=== PATIENT | male | born 1965 | race Hispanic/Latino ===

== ENCOUNTER 2020-02-08 19:03 | Inpatient (IN) | payer BC ==
[~2020-02-08] VITALS: Ht 177.8 cm; Wt 89.4 kg
[2020-02-08] MEDS: PHARMACY COMMUNICATION**REMDESIVIR ORDER MISC SCH ×3 (07:00→19:00)
[2020-02-08 19:49] LABS: BASOPHILS % (AUTO) 0.1 % (0.0-5.0); HEMATOCRIT 43.7 % (42-54); MEAN CORPUSCULAR HEMOGLOBIN 28.9 pg (27.0-33.0); MEAN CORPUSCULAR HGB CONC 33.9 g/dL (32.0-36.0); MEAN CORPUSCULAR VOLUME 85.4 fL (79-99); MONOCYTES % (AUTO) 3.1 % (3.0-13.0); NEUTROPHILS % (AUTO) 86.4 % (40.0-77.0); PLATELET COUNT (AUTO) 190 K/uL (130-400); RED BLOOD CELL COUNT(AUTO) 5.12 MIL/uL (4.50-6.20); WHITE BLOOD COUNT (AUTO) 11.2 K/uL (4.8-10.8)
[2020-02-08 20:04] LABS: CREATININE 1.1 mg/dL (0.5-1.5); POTASSIUM 3.9 mmol/L (3.5-5.1)
[2020-02-08 20:07] LABS: INR 0.93 (0.85-1.15); PROTHROMBIN TIME 10.1 SEC (9.6-11.6)
[2020-02-08 20:08] LABS: ALBUMIN 2.9 g/dL (3.5-5.0); BILIRUBIN,TOTAL 0.5 mg/dL (0.2-1.0); PARTIAL THROMBOPLASTIN TIME 33.1 SEC (26.3-35.5); TOTAL PROTEIN, SERUM 8.2 g/dL (6.0-8.3)
[2020-02-08] MEDS ORDERED: AZITHROMYCIN 250 MG TABLET PO ONE (20:11)
[2020-02-08] MEDS ORDERED: ACETAMINOPHEN EXTRA STRENGTH 500 MG TABLET ONE (20:11)
[2020-02-08] MEDS ORDERED: CEFTRIAXONE SODIUM 1 GM ONE (20:11)
[2020-02-08] MEDS ORDERED: DEXAMETHASONE 10MG/ML 1ML VIAL 6 MG in SODIUM CHLORIDE 0.9% 50 ML IV SCH (21:00)
[2020-02-08] MEDS ORDERED: LACTULOSE 20 GM/30 ML UDCUP PO PRN (21:00)
[2020-02-08] MEDS: CEFTRIAXONE SODIUM 1 GM IV SCH (21:00)
[2020-02-08] MEDS ORDERED: ERGOCALCIFEROL (VITAMIN D2) 50,000 UNIT CAPSULE PO ONE (21:00)
[2020-02-08] MEDS ORDERED: ZOLPIDEM TARTRATE 5 MG TAB PO PRN (21:00)
[2020-02-08] MEDS: HEPARIN SODIUM 5000UNIT/ML 1ML VIAL SQ SCH (21:00)
[2020-02-08] MEDS ORDERED: MORPHINE SULFATE 2 MG/ML 1ML SYG IV PRN (21:00)
[2020-02-08] MEDS: AZITHROMYCIN 500MG+NS 250ML 250 ML IV SCH (21:00)
[2020-02-08] MEDS ORDERED: ACETAMINOPHEN 325 MG TAB PO PRN ×2 (21:00)
[2020-02-08] MEDS ORDERED: MAG HYDROX/AL HYDROX/SIMETH 30 ML, LIDOCAINE HCL 2% VISCOUS 30 ML, DIPHENHYDRAMINE HCL ... PO PRN ×3 (21:00)
[2020-02-08] MEDS ORDERED: NITROGLYCERIN 0.4 MG SL TAB SL PRN (21:00)
[2020-02-08] MEDS ORDERED: MAG HYDROX/AL HYDROX/SIMETH ES 30 ML SUSP UDCUP PO PRN (21:00)
[2020-02-08] MEDS ORDERED: ONDANSETRON HCL 4 MG/2 ML VIAL IV PRN (21:00)
[2020-02-08] MEDS: FAMOTIDINE/PF 20 MG/2 ML VIAL IV SCH (21:00)
[2020-02-08] MEDS ORDERED: MORPHINE SULFATE 4 MG/1ML SYG IV PRN (21:00)
[2020-02-08] MEDS ORDERED: IOHEXOL 350 MG/ML 100ML INFUS..BTL IV ONE (21:23)
[2020-02-08] MEDS ORDERED: ERGOCALCIFEROL (VITAMIN D2) 50,000 UNIT CAPSULE ONE (21:24)
[2020-02-08] MEDS ORDERED: FAMOTIDINE/PF 20 MG/2 ML VIAL IV ONE (21:25)
[2020-02-08] MEDS ORDERED: ZOLPIDEM TARTRATE 5 MG TAB ONE (21:25)
[2020-02-08] MEDS ORDERED: DEXAMETHASONE SOD PHOSPHATE 4 MG/ML 1ML VIAL ONE (21:26)
[2020-02-08] MEDS ORDERED: GLUCAGON 1MG KIT 1 MG ML IM PRN (21:30)
[2020-02-08] MEDS ORDERED: DEXTROSE 50%-WATER 50 ML DISP.SYRIN IV PRN (21:30)
[2020-02-08 22:17] LABS: APPEARANCE,URINE Clear (CLEAR); BILIRUBIN,URINE Negative (NEGATIVE); COLOR,URINE Yellow (YELLOW); GLUCOSE, URINE (UA) TRACE mg/dL (NEGATIVE); KETONES,URINE 15 mg/dL (NEGATIVE); LEUKOCYTE ESTERASE ,URINE Negative (NEGATIVE); NITRATE,URINE Negative (NEGATIVE); OCCULT BLOOD,URINE Negative (NEGATIVE); PH,URINE 5.5 (5.0-8.0); PROTEIN,URINE POS 2+ mg/dL (NEGATIVE); UROBILINOGEN,URINE 0.2 mg/dL (0.2-1.0)
[2020-02-08 22:20] VITALS: BP 114/85
[2020-02-08 22:27] LABS: BACTERIA,URINE None Seen /HPF (None Seen); MUCUS,URINE Moderate LPF (None Seen); RBC,URINE None Seen /HPF (0-1); SQUAMOUS EPITHELIAL CELL,UR Few /HPF (0-2); WBC,URINE None Seen /HPF (0-1)
[2020-02-08] MEDS ORDERED: METF-444 PO (23:09)
[2020-02-09] MEDS: PHARMACY COMMUNICATION**REMDESIVIR ORDER MISC SCH ×5 (01:00→19:46)
[2020-02-09 03:55] VITALS: BP 141/83
[2020-02-09 06:10] LABS: BASOPHILS % (AUTO) 0.1 % (0.0-5.0); HEMATOCRIT 42.3 % (42-54); LYMPHOCYTES % (AUTO) 8.3 % (21.0-51.0); MEAN CORPUSCULAR HEMOGLOBIN 28.7 pg (27.0-33.0); MEAN CORPUSCULAR HGB CONC 33.8 g/dL (32.0-36.0); MEAN CORPUSCULAR VOLUME 84.9 fL (79-99); MONOCYTES % (AUTO) 2.5 % (3.0-13.0); NEUTROPHILS % (AUTO) 88.7 % (40.0-77.0); PLATELET COUNT (AUTO) 192 K/uL (130-400); RED BLOOD CELL COUNT(AUTO) 4.98 MIL/uL (4.50-6.20); RED CELL DISTRIBUTION WIDTH 12.9 % (11.0-15.5); WHITE BLOOD COUNT (AUTO) 11.5 K/uL (4.8-10.8)
[2020-02-09] MEDS: INSULIN LISPRO 100 UNIT/ML 3ML SQ SCH ×4 (06:36→21:07)
[2020-02-09] MEDS: DEXAMETHASONE 10MG/ML 1ML VIAL 6 MG in SODIUM CHLORIDE 0.9% 50 ML IV SCH (06:39)
[2020-02-09 06:48] LABS: ALBUMIN 2.6 g/dL (3.5-5.0); BILIRUBIN,TOTAL 0.5 mg/dL (0.2-1.0); CREATININE 1.1 mg/dL (0.5-1.5); POTASSIUM 4.1 mmol/L (3.5-5.1); TOTAL PROTEIN, SERUM 7.8 g/dL (6.0-8.3)
[2020-02-09 08:00] VITALS: BP 144/90
[2020-02-09 09:41] LABS: CRP QUANTITATIVE 294.2 mg/L (0.00-9.0)
[2020-02-09] MEDS: ASCORBIC ACID 500 MG TAB PO SCH (11:41)
[2020-02-09] MEDS: FAMOTIDINE/PF 20 MG/2 ML VIAL IV SCH ×2 (11:41→21:04)
[2020-02-09] MEDS: ZINC SULFATE 220 CAPSULE PO SCH (11:41)
[2020-02-09] MEDS: HEPARIN SODIUM 5000UNIT/ML 1ML VIAL SQ SCH ×3 (11:45→21:07)
[2020-02-09 12:00] VITALS: BP 136/86
[2020-02-09] MEDS ORDERED: GUAIFENESIN SUGAR-FREE 100 MG/5 ML UDCUP ONE (12:40)
[2020-02-09] MEDS ORDERED: GUAIFENESIN SUGAR-FREE 100 MG/5 ML UDCUP PO SCH (12:45)
[2020-02-09] MEDS ORDERED: PNEUMOCOCCAL VACCINE POLYVALENT 0.5 ML/VIAL [PPV] IM ONE (15:00)
[2020-02-09] MEDS ORDERED: PNEUMOCOCCAL VACCINE POLYVALENT 0.5 ML/VIAL [PPV] IM SCH (15:00)
--- NOTE | 2020-02-09 15:18 | NUR ---
ROBERT NOTE/IA UNABLE TO MEET WITH PATIENT IN ROOM, NEXT OF KIN CALLED,, VANITA DINO. PER DAUGHTER, PATIENT LIVES WITH SPOUSE, IS INDEPENDENT WITH ADLS, HAS GLUCOMETER IN USE, DRIVES, AND FEELS SAFE FOR PATIENT TO RETURN HOME ONCE DISCHARGED FROM HOSPITAL. Addendum: 02/09/20 at 1520 by MARIELENA NGUYỄN RN CM Amended: Links added.
[2020-02-09 16:00] VITALS: BP 136/85
[2020-02-09 20:05] VITALS: BP 133/77
[2020-02-09] MEDS: AZITHROMYCIN 500MG+NS 250ML 250 ML IV SCH (21:04)
[2020-02-09] MEDS: CEFTRIAXONE SODIUM 1 GM IV SCH (21:04)
[2020-02-10 00:20] VITALS: BP 130/87
[2020-02-10] MEDS: INSULIN LISPRO 100 UNIT/ML 3ML SQ SCH ×2 (05:00→17:55)
[2020-02-10] MEDS: PHARMACY COMMUNICATION**REMDESIVIR ORDER MISC SCH ×3 (05:00→19:00)
[2020-02-10 05:30] VITALS: BP 140/71
[2020-02-10 05:47] LABS: BASOPHILS % (AUTO) 0.2 % (0.0-5.0); EOSINOPHILS % (AUTO) 0.1 % (0.0-8.0); HEMATOCRIT 43.3 % (42-54); LYMPHOCYTES % (AUTO) 9.2 % (21.0-51.0); MEAN CORPUSCULAR HEMOGLOBIN 28.6 pg (27.0-33.0); MEAN CORPUSCULAR HGB CONC 33.5 g/dL (32.0-36.0); MEAN CORPUSCULAR VOLUME 85.4 fL (79-99); MONOCYTES % (AUTO) 1.8 % (3.0-13.0); NEUTROPHILS % (AUTO) 87.7 % (40.0-77.0); PLATELET COUNT (AUTO) 232 K/uL (130-400); RED BLOOD CELL COUNT(AUTO) 5.07 MIL/uL (4.50-6.20); WHITE BLOOD COUNT (AUTO) 13.2 K/uL (4.8-10.8)
[2020-02-10 06:12] LABS: ALBUMIN 2.5 g/dL (3.5-5.0); BILIRUBIN,TOTAL 0.5 mg/dL (0.2-1.0); CREATININE 0.8 mg/dL (0.5-1.5); POTASSIUM 3.9 mmol/L (3.5-5.1); TOTAL PROTEIN, SERUM 7.9 g/dL (6.0-8.3)
[2020-02-10 06:35] LABS: CRP QUANTITATIVE 342.7 mg/L (0.00-9.0)
[2020-02-10] MEDS: DEXAMETHASONE 10MG/ML 1ML VIAL 6 MG in SODIUM CHLORIDE 0.9% 50 ML IV SCH (06:35)
[2020-02-10] MEDS: ASCORBIC ACID 500 MG TAB PO SCH (08:24)
[2020-02-10] MEDS: ZINC SULFATE 220 CAPSULE PO SCH (08:24)
[2020-02-10] MEDS: FAMOTIDINE/PF 20 MG/2 ML VIAL IV SCH ×2 (08:24→20:37)
[2020-02-10] MEDS: HEPARIN SODIUM 5000UNIT/ML 1ML VIAL SQ SCH ×3 (08:26→20:51)
[2020-02-10 08:28] VITALS: BP 157/95
--- NOTE | 2020-02-10 10:36 | NUR ---
Update Spoke with family regarding pt's condition. Updated them on pt's status regarding oxygenation and activity tolerance. Verbalized understanding and will continue to offer encouragement and remind pt to practice deep breathing.
[2020-02-10 16:12] VITALS: BP 139/93
[2020-02-10 19:00] VITALS: BP 127/90
[2020-02-10 20:12] VITALS: BP 127/90
[2020-02-10] MEDS: AZITHROMYCIN 500MG+NS 250ML 250 ML IV SCH (20:35)
[2020-02-10] MEDS: CEFTRIAXONE SODIUM 1 GM IV SCH (20:36)
[2020-02-10 20:52] LABS: BASOPHILS % (AUTO) 0.1 % (0.0-5.0); HEMATOCRIT 42.4 % (42-54); MEAN CORPUSCULAR HEMOGLOBIN 28.8 pg (27.0-33.0); MEAN CORPUSCULAR HGB CONC 33.7 g/dL (32.0-36.0); MEAN CORPUSCULAR VOLUME 85.3 fL (79-99); MONOCYTES % (AUTO) 1.6 % (3.0-13.0); NEUTROPHILS % (AUTO) 90.9 % (40.0-77.0); PLATELET COUNT (AUTO) 267 K/uL (130-400); RED BLOOD CELL COUNT(AUTO) 4.97 MIL/uL (4.50-6.20); RED CELL DISTRIBUTION WIDTH 12.9 % (11.0-15.5); WHITE BLOOD COUNT (AUTO) 15.3 K/uL (4.8-10.8)
[2020-02-10] MEDS: INSULIN HUMULIN R 100 UNIT/ML 3ML SQ SCH (20:52)
[2020-02-10] MEDS ORDERED: INSULIN GLARGINE 100 UNITS/ML 10 ML VIAL SQ SCH (21:00)
[2020-02-11] MEDS: PHARMACY COMMUNICATION**REMDESIVIR ORDER MISC SCH ×4 (00:12→19:00)
[2020-02-11 00:13] VITALS: BP 124/92
[2020-02-11 04:00] VITALS: BP 141/80
[2020-02-11 06:12] LABS: BASOPHILS % (AUTO) 0.1 % (0.0-5.0); EOSINOPHILS % (AUTO) 0.1 % (0.0-8.0); HEMATOCRIT 44.9 % (42-54); LYMPHOCYTES % (AUTO) 6.4 % (21.0-51.0); MEAN CORPUSCULAR HEMOGLOBIN 27.8 pg (27.0-33.0); MEAN CORPUSCULAR HGB CONC 32.5 g/dL (32.0-36.0); MEAN CORPUSCULAR VOLUME 85.5 fL (79-99); MONOCYTES % (AUTO) 1.4 % (3.0-13.0); NEUTROPHILS % (AUTO) 90.6 % (40.0-77.0); PLATELET COUNT (AUTO) 282 K/uL (130-400); RED BLOOD CELL COUNT(AUTO) 5.25 MIL/uL (4.50-6.20); WHITE BLOOD COUNT (AUTO) 14.6 K/uL (4.8-10.8)
[2020-02-11] MEDS: DEXAMETHASONE 10MG/ML 1ML VIAL 6 MG in SODIUM CHLORIDE 0.9% 50 ML IV SCH (06:20)
[2020-02-11 06:43] LABS: ALBUMIN 2.4 g/dL (3.5-5.0); BILIRUBIN,TOTAL 0.4 mg/dL (0.2-1.0); POTASSIUM 4.6 mmol/L (3.5-5.1); TOTAL PROTEIN, SERUM 8.3 g/dL (6.0-8.3)
[2020-02-11 07:01] LABS: CRP QUANTITATIVE 330.6 mg/L (0.00-9.0)
[2020-02-11] MEDS: INSULIN HUMULIN R 100 UNIT/ML 3ML SQ SCH ×7 (07:30→21:42)
[2020-02-11] MEDS: HEPARIN SODIUM 5000UNIT/ML 1ML VIAL SQ SCH ×3 (08:07→21:38)
[2020-02-11] MEDS: FAMOTIDINE/PF 20 MG/2 ML VIAL IV SCH ×2 (08:09→21:37)
[2020-02-11] MEDS: ASCORBIC ACID 500 MG TAB PO SCH (08:09)
[2020-02-11] MEDS: ZINC SULFATE 220 CAPSULE PO SCH (08:09)
--- NOTE | 2020-02-11 09:15 | NUR ---
DR. AMADOR AWARE OF CONSULT. SPOKE TO MD VIA TELEPHONE.
[2020-02-11] MEDS ORDERED: PHARMACY COMMUNICATION MISC SCH ×2 (10:15→10:45)
[2020-02-11] MEDS ORDERED: METHYLPREDNISOLONE SOD SUCC 125MG/2ML VIAL ONE (11:05)
[2020-02-11 12:19] VITALS: BP 139/93
[2020-02-11] MEDS: METHYLPREDNISOLONE SOD SUCC 125MG/2ML VIAL IVP SCH ×2 (12:24→18:55)
[2020-02-11 12:41] LABS: ABG BASE EXCESS -0.8 mmol/L (-2.0-3.0); ABG OXYGEN SATURATION 94.5 % (95.0-99.0); ABG PCO2 36 mmHg (35-48)
[2020-02-11] MEDS ORDERED: COMPOUND IV REFRIGERATED 1 EACH IVSOLN MISC PRN (14:00)
[2020-02-11] MEDS ORDERED: REMDESIVIR (EUA) 520 200 MG in SODIUM CHLORIDE 0.9% 250 ML IV ONE (14:00)
[2020-02-11 16:34] VITALS: BP 146/72
[2020-02-11 20:47] VITALS: BP 133/88
[2020-02-11] MEDS ORDERED: INSULIN GLARGINE 100 UNITS/ML 10 ML VIAL SQ SCH (21:00)
[2020-02-11] MEDS: CEFTRIAXONE SODIUM 1 GM IV SCH (21:37)
[2020-02-12] VITALS (7 sets, daily range): BP systolic 112–151; BP diastolic 65–88
[2020-02-12] MEDS: METHYLPREDNISOLONE SOD SUCC 125MG/2ML VIAL IVP SCH ×4 (02:52→22:50)
[2020-02-12] MEDS: PHARMACY COMMUNICATION MISC SCH (05:08)
[2020-02-12 05:09] LABS: BASOPHILS % (AUTO) 0.2 % (0.0-5.0); HEMATOCRIT 44.5 % (42-54); LYMPHOCYTES % (AUTO) 5.4 % (21.0-51.0); MEAN CORPUSCULAR HEMOGLOBIN 28.6 pg (27.0-33.0); MEAN CORPUSCULAR HGB CONC 33.7 g/dL (32.0-36.0); MEAN CORPUSCULAR VOLUME 84.8 fL (79-99); MONOCYTES % (AUTO) 1.6 % (3.0-13.0); NEUTROPHILS % (AUTO) 91.2 % (40.0-77.0); PLATELET COUNT (AUTO) 305 K/uL (130-400); RED BLOOD CELL COUNT(AUTO) 5.25 MIL/uL (4.50-6.20)
[2020-02-12 05:48] LABS: CRP QUANTITATIVE 480.2 mg/L (0.00-9.0); POTASSIUM 4.1 mmol/L (3.5-5.1)
[2020-02-12] MEDS: INSULIN HUMULIN R 100 UNIT/ML 3ML SQ SCH ×6 (06:49→22:55)
[2020-02-12] MEDS ORDERED: INSULIN HUMULIN R 100 UNIT/ML 3ML SQ SCH (07:30)
[2020-02-12] MEDS: ENOXAPARIN SODIUM 60 MG/0.6 ML SQ SCH ×3 (08:58→22:49)
[2020-02-12] MEDS: FAMOTIDINE/PF 20 MG/2 ML VIAL IV SCH ×2 (08:58→22:50)
[2020-02-12] MEDS: ASCORBIC ACID 500 MG TAB PO SCH (08:59)
[2020-02-12] MEDS: ZINC SULFATE 220 CAPSULE PO SCH (08:59)
[2020-02-12 09:01] LABS: ALBUMIN 2.1 g/dL (3.5-5.0); BILIRUBIN,DIRECT 0.1 mg/dL (0.0-0.3); BILIRUBIN,TOTAL 0.4 mg/dL (0.2-1.0); TOTAL PROTEIN, SERUM 7.7 g/dL (6.0-8.3)
[2020-02-12] MEDS: REMDESIVIR (EUA) 520 100 MG in SODIUM CHLORIDE 0.9% 250 ML IV SCH (14:03)
--- NOTE | 2020-02-12 18:02 | NUR ---
Pt remain on high flow o2, cont pulse ox maintained per order. Frequent rounding performed. IV remdesevir givenper order. Proning as tolerated. spoke to patient family multiple occasions during the shift, plan of care discuss with pt and family. safety maintained. no acute events for this shift
[2020-02-12] MEDS ORDERED: INSULIN GLARGINE 100 UNITS/ML 10 ML VIAL SQ SCH (21:00)
[2020-02-12] MEDS: CEFTRIAXONE SODIUM 1 GM IV SCH (22:49)
[2020-02-13 03:50] VITALS: BP 132/77
[2020-02-13] MEDS: PHARMACY COMMUNICATION MISC SCH (05:19)
[2020-02-13 05:44] LABS: BASOPHILS % (AUTO) 0.2 % (0.0-5.0); HEMATOCRIT 44.9 % (42-54); LYMPHOCYTES % (AUTO) 5.7 % (21.0-51.0); MEAN CORPUSCULAR HEMOGLOBIN 28.3 pg (27.0-33.0); MEAN CORPUSCULAR HGB CONC 33.2 g/dL (32.0-36.0); MEAN CORPUSCULAR VOLUME 85.4 fL (79-99); MONOCYTES % (AUTO) 1.4 % (3.0-13.0); NEUTROPHILS % (AUTO) 90.9 % (40.0-77.0); PLATELET COUNT (AUTO) 350 K/uL (130-400); RED BLOOD CELL COUNT(AUTO) 5.26 MIL/uL (4.50-6.20); RED CELL DISTRIBUTION WIDTH 13.2 % (11.0-15.5); WHITE BLOOD COUNT (AUTO) 18.9 K/uL (4.8-10.8)
[2020-02-13 06:10] LABS: ALBUMIN 2.1 g/dL (3.5-5.0); BILIRUBIN,TOTAL 0.3 mg/dL (0.2-1.0); CREATININE 0.9 mg/dL (0.5-1.5); CRP QUANTITATIVE 119.9 mg/L (0.00-9.0); POTASSIUM 4.3 mmol/L (3.5-5.1); TOTAL PROTEIN, SERUM 7.4 g/dL (6.0-8.3)
[2020-02-13] MEDS: INSULIN HUMULIN R 100 UNIT/ML 3ML SQ SCH ×7 (06:22→20:54)
[2020-02-13] MEDS: INSULIN GLARGINE 100 UNITS/ML 10 ML VIAL SQ SCH (07:59)
[2020-02-13 08:00] VITALS: BP 116/78
[2020-02-13] MEDS: ASCORBIC ACID 500 MG TAB PO SCH (09:03)
[2020-02-13] MEDS: FAMOTIDINE/PF 20 MG/2 ML VIAL IV SCH ×2 (09:03→20:52)
[2020-02-13] MEDS: ENOXAPARIN SODIUM 60 MG/0.6 ML SQ SCH ×2 (09:03→20:54)
[2020-02-13] MEDS: ZINC SULFATE 220 CAPSULE PO SCH (09:03)
[2020-02-13] MEDS: METHYLPREDNISOLONE SOD SUCC 125MG/2ML VIAL IVP SCH ×2 (09:20→17:08)
[2020-02-13 11:00] VITALS: BP 127/70
[2020-02-13] MEDS: REMDESIVIR (EUA) 520 100 MG in SODIUM CHLORIDE 0.9% 250 ML IV SCH (13:41)
[2020-02-13 16:00] VITALS: BP 125/63
--- NOTE | 2020-02-13 18:41 | NUR ---
UPDATE 02/12 PT AOX4. Remdesivir dose administered. vss. maintained on HRNB o2. cont pulse ox. saturating 90's.bs mnitor closely. all meds given. no acute events to report for this shif
[2020-02-13 19:30] VITALS: BP 126/55
[2020-02-13] MEDS: CEFTRIAXONE SODIUM 1 GM IV SCH (20:52)
[2020-02-13] MEDS ORDERED: INSULIN GLARGINE 100 UNITS/ML 10 ML VIAL SQ SCH (21:00)
[2020-02-13 23:00] VITALS: BP 154/48
[2020-02-14] MEDS: METHYLPREDNISOLONE SOD SUCC 125MG/2ML VIAL IVP SCH ×3 (01:55→18:12)
[2020-02-14 02:49] VITALS: BP 123/90
[2020-02-14] MEDS: PHARMACY COMMUNICATION MISC SCH (06:00)
[2020-02-14 06:02] LABS: BASOPHILS % (AUTO) 0.2 % (0.0-5.0); HEMATOCRIT 45.6 % (42-54); LYMPHOCYTES % (AUTO) 5.6 % (21.0-51.0); MEAN CORPUSCULAR HEMOGLOBIN 28.7 pg (27.0-33.0); MEAN CORPUSCULAR HGB CONC 33.1 g/dL (32.0-36.0); MEAN CORPUSCULAR VOLUME 86.5 fL (79-99); MONOCYTES % (AUTO) 1.5 % (3.0-13.0); NEUTROPHILS % (AUTO) 90.3 % (40.0-77.0); PLATELET COUNT (AUTO) 354 K/uL (130-400); RED BLOOD CELL COUNT(AUTO) 5.27 MIL/uL (4.50-6.20); RED CELL DISTRIBUTION WIDTH 13.5 % (11.0-15.5)
[2020-02-14] MEDS: INSULIN HUMULIN R 100 UNIT/ML 3ML SQ SCH ×7 (06:02→21:00)
[2020-02-14 06:28] LABS: BILIRUBIN,TOTAL 0.3 mg/dL (0.2-1.0); CREATININE 0.9 mg/dL (0.5-1.5); POTASSIUM 4.1 mmol/L (3.5-5.1); TOTAL PROTEIN, SERUM 7.2 g/dL (6.0-8.3)
[2020-02-14 07:23] VITALS: BP 109/69
[2020-02-14] MEDS: ASCORBIC ACID 500 MG TAB PO SCH (08:39)
[2020-02-14] MEDS: FAMOTIDINE/PF 20 MG/2 ML VIAL IV SCH ×2 (08:39→21:16)
[2020-02-14] MEDS: ZINC SULFATE 220 CAPSULE PO SCH (08:39)
[2020-02-14] MEDS: ENOXAPARIN SODIUM 60 MG/0.6 ML SQ SCH ×2 (08:40→21:16)
[2020-02-14] MEDS: INSULIN GLARGINE 100 UNITS/ML 10 ML VIAL SQ SCH (08:43)
[2020-02-14 11:21] VITALS: BP 123/69
[2020-02-14] MEDS: REMDESIVIR (EUA) 520 100 MG in SODIUM CHLORIDE 0.9% 250 ML IV SCH (13:29)
[2020-02-14 15:35] VITALS: BP 145/84
[2020-02-14 19:00] VITALS: BP_SYST 117; BP_SYST 131; BP_DIAS 66; BP_DIAS 73
[2020-02-14] MEDS: CEFTRIAXONE SODIUM 1 GM IV SCH (21:16)
[2020-02-14] MEDS ORDERED: SODIUM CHLORIDE 0.9% 100 ML IV ONE (21:41)
[2020-02-14 23:00] VITALS: BP 128/82
[2020-02-15] MEDS: METHYLPREDNISOLONE SOD SUCC 125MG/2ML VIAL IVP SCH ×3 (01:27→18:39)
[2020-02-15 03:00] VITALS: BP 115/75
[2020-02-15] MEDS: PHARMACY COMMUNICATION MISC SCH (05:52)
[2020-02-15] MEDS: INSULIN HUMULIN R 100 UNIT/ML 3ML SQ SCH ×7 (05:53→20:23)
[2020-02-15 06:27] LABS: BASOPHILS % (AUTO) 0.1 % (0.0-5.0); HEMATOCRIT 45.7 % (42-54); LYMPHOCYTES % (AUTO) 5.3 % (21.0-51.0); MEAN CORPUSCULAR HEMOGLOBIN 28.4 pg (27.0-33.0); MEAN CORPUSCULAR HGB CONC 32.6 g/dL (32.0-36.0); MONOCYTES % (AUTO) 1.2 % (3.0-13.0); PLATELET COUNT (AUTO) 329 K/uL (130-400); RED BLOOD CELL COUNT(AUTO) 5.25 MIL/uL (4.50-6.20); RED CELL DISTRIBUTION WIDTH 13.6 % (11.0-15.5); WHITE BLOOD COUNT (AUTO) 17.8 K/uL (4.8-10.8)
[2020-02-15 07:02] LABS: ALBUMIN 2.1 g/dL (3.5-5.0); BILIRUBIN,TOTAL 0.4 mg/dL (0.2-1.0); CREATININE 0.7 mg/dL (0.5-1.5); CRP QUANTITATIVE 47.4 mg/L (0.00-9.0); POTASSIUM 4.6 mmol/L (3.5-5.1); TOTAL PROTEIN, SERUM 6.9 g/dL (6.0-8.3)
[2020-02-15 08:00] VITALS: BP 125/81
[2020-02-15] MEDS: INSULIN GLARGINE 100 UNITS/ML 10 ML VIAL SQ SCH (08:23)
[2020-02-15] MEDS: FAMOTIDINE/PF 20 MG/2 ML VIAL IV SCH ×2 (08:24→20:23)
[2020-02-15] MEDS: ZINC SULFATE 220 CAPSULE PO SCH (08:24)
[2020-02-15] MEDS: ASCORBIC ACID 500 MG TAB PO SCH (08:24)
[2020-02-15] MEDS: ENOXAPARIN SODIUM 60 MG/0.6 ML SQ SCH ×2 (08:25→20:24)
[2020-02-15 11:00] VITALS: BP 123/76
[2020-02-15] MEDS: REMDESIVIR (EUA) 520 100 MG in SODIUM CHLORIDE 0.9% 250 ML IV SCH (13:06)
[2020-02-15 16:00] VITALS: BP 132/82
[2020-02-15 19:40] VITALS: BP 129/77
[2020-02-15 23:10] VITALS: BP 121/75
[2020-02-16] MEDS: METHYLPREDNISOLONE SOD SUCC 125MG/2ML VIAL IVP SCH ×3 (01:53→17:43)
[2020-02-16] MEDS: BENZOCAINE/MENTH/CETYLPYRD CL 1 EACH LOZENGE MM PRN (03:11)
[2020-02-16] MEDS: PHARMACY COMMUNICATION MISC SCH (03:18)
[2020-02-16 05:57] LABS: BASOPHILS % (AUTO) 0.2 % (0.0-5.0); HEMATOCRIT 46.3 % (42-54); LYMPHOCYTES % (AUTO) 5.2 % (21.0-51.0); MEAN CORPUSCULAR HEMOGLOBIN 28.7 pg (27.0-33.0); MEAN CORPUSCULAR HGB CONC 32.8 g/dL (32.0-36.0); MEAN CORPUSCULAR VOLUME 87.4 fL (79-99); MONOCYTES % (AUTO) 1.4 % (3.0-13.0); PLATELET COUNT (AUTO) 344 K/uL (130-400); RED CELL DISTRIBUTION WIDTH 13.4 % (11.0-15.5); WHITE BLOOD COUNT (AUTO) 18.2 K/uL (4.8-10.8)
[2020-02-16] MEDS: INSULIN HUMULIN R 100 UNIT/ML 3ML SQ SCH ×7 (06:04→20:34)
[2020-02-16 06:07] VITALS: BP 117/75
[2020-02-16 06:34] LABS: ALANINE AMINOTRANSFERASE 86 U/L (12-78); ALBUMIN 2.2 g/dL (3.5-5.0); ASPARTATE AMINOTRANSFERASE 52 U/L (10-37); BILIRUBIN,TOTAL 0.5 mg/dL (0.2-1.0); CARBON DIOXIDE 26 mmol/L (21-32); CHLORIDE 103 mmol/L (101-111); CREATININE 0.8 mg/dL (0.5-1.5); GLOMERULAR FILTR. RATE CALC 106 mL/min (>60); GLUCOSE,RANDOM 112 mg/dL (70-105); LACTATE DEHYDROGENASE 496 U/L (81-234); POTASSIUM 4.6 mmol/L (3.5-5.1); SODIUM SERUM 138 mmol/L (136-145); TOTAL PROTEIN, SERUM 6.8 g/dL (6.0-8.3); UREA NITROGEN, BLOOD 18 mg/dL (7-18)
[2020-02-16] MEDS: INSULIN GLARGINE 100 UNITS/ML 10 ML VIAL SQ SCH (08:13)
[2020-02-16] MEDS: FAMOTIDINE/PF 20 MG/2 ML VIAL IV SCH ×2 (08:14→20:31)
[2020-02-16] MEDS: ASCORBIC ACID 500 MG TAB PO SCH (08:14)
[2020-02-16] MEDS: ENOXAPARIN SODIUM 60 MG/0.6 ML SQ SCH ×2 (08:14→20:31)
[2020-02-16] MEDS: ZINC SULFATE 220 CAPSULE PO SCH (08:14)
[2020-02-16 09:06] VITALS: BP 109/58
[2020-02-16 14:48] VITALS: BP 106/63
[2020-02-16] MEDS: GUAIFENESIN-DM 200/20 MG 10 ML PO PRN ×2 (17:43→20:31)
[2020-02-16 18:51] VITALS: BP 123/69
[2020-02-16 19:40] VITALS: BP 116/67
[2020-02-16 23:10] VITALS: BP 102/60
[2020-02-17] MEDS: METHYLPREDNISOLONE SOD SUCC 125MG/2ML VIAL IVP SCH ×3 (02:23→16:49)
[2020-02-17 04:10] VITALS: BP 116/69
[2020-02-17 06:11] LABS: BASOPHILS % (AUTO) 0.2 % (0.0-5.0); HEMATOCRIT 45.8 % (42-54); LYMPHOCYTES % (AUTO) 6.4 % (21.0-51.0); MEAN CORPUSCULAR HEMOGLOBIN 28.5 pg (27.0-33.0); MEAN CORPUSCULAR VOLUME 86.4 fL (79-99); MONOCYTES % (AUTO) 2.1 % (3.0-13.0); NEUTROPHILS % (AUTO) 89.2 % (40.0-77.0); PLATELET COUNT (AUTO) 345 K/uL (130-400); RED CELL DISTRIBUTION WIDTH 13.4 % (11.0-15.5); WHITE BLOOD COUNT (AUTO) 17.9 K/uL (4.8-10.8)
[2020-02-17] MEDS: INSULIN HUMULIN R 100 UNIT/ML 3ML SQ SCH ×7 (06:27→20:10)
[2020-02-17 06:28] LABS: ALBUMIN 2.1 g/dL (3.5-5.0); BILIRUBIN,TOTAL 0.5 mg/dL (0.2-1.0); CREATININE 0.8 mg/dL (0.5-1.5); CRP QUANTITATIVE 21.7 mg/L (0.00-9.0); POTASSIUM 4.7 mmol/L (3.5-5.1); TOTAL PROTEIN, SERUM 6.8 g/dL (6.0-8.3)
[2020-02-17 08:00] VITALS: BP 106/63
[2020-02-17] MEDS: INSULIN GLARGINE 100 UNITS/ML 10 ML VIAL SQ SCH (08:00)
[2020-02-17] MEDS: ASCORBIC ACID 500 MG TAB PO SCH (08:50)
[2020-02-17] MEDS: ENOXAPARIN SODIUM 60 MG/0.6 ML SQ SCH ×2 (08:51→20:09)
[2020-02-17] MEDS: ZINC SULFATE 220 CAPSULE PO SCH (08:51)
[2020-02-17] MEDS: FAMOTIDINE/PF 20 MG/2 ML VIAL IV SCH ×2 (08:51→20:08)
[2020-02-17 12:35] VITALS: BP 119/80
[2020-02-17 17:39] VITALS: BP 118/70
[2020-02-17 19:40] VITALS: BP 130/81
--- NOTE | 2020-02-17 19:52 | NUR ---
MD CALL RCVD CALL FROM DR. SANCHEZ REGARDING PT NOT RECEIVING SCHEDULED LANTUS 30 UNITS AT 0800. TORB TO GIVE PT LANTUS 30 UNITS SQ NOW. PT BG AT THIS TIME IS 240.
[2020-02-17] MEDS ORDERED: INSULIN GLARGINE 100 UNITS/ML 10 ML VIAL SQ ONE (20:15)
[2020-02-17 23:05] VITALS: BP 111/63
[2020-02-18] MEDS: METHYLPREDNISOLONE SOD SUCC 125MG/2ML VIAL IVP SCH ×4 (02:25→19:51)
[2020-02-18 04:25] VITALS: BP 120/78
[2020-02-18 05:29] LABS: BASOPHILS % (AUTO) 0.1 % (0.0-5.0); HEMATOCRIT 45.5 % (42-54); LYMPHOCYTES % (AUTO) 3.2 % (21.0-51.0); MEAN CORPUSCULAR HEMOGLOBIN 28.2 pg (27.0-33.0); MEAN CORPUSCULAR HGB CONC 32.7 g/dL (32.0-36.0); MEAN CORPUSCULAR VOLUME 86.2 fL (79-99); MONOCYTES % (AUTO) 2.1 % (3.0-13.0); NEUTROPHILS % (AUTO) 93.2 % (40.0-77.0); PLATELET COUNT (AUTO) 299 K/uL (130-400); RED BLOOD CELL COUNT(AUTO) 5.28 MIL/uL (4.50-6.20); RED CELL DISTRIBUTION WIDTH 13.3 % (11.0-15.5); WHITE BLOOD COUNT (AUTO) 17.3 K/uL (4.8-10.8)
[2020-02-18 05:49] LABS: BILIRUBIN,TOTAL 0.4 mg/dL (0.2-1.0); CREATININE 0.8 mg/dL (0.5-1.5); TOTAL PROTEIN, SERUM 6.4 g/dL (6.0-8.3)
[2020-02-18] MEDS: INSULIN HUMULIN R 100 UNIT/ML 3ML SQ SCH ×7 (06:38→20:21)
[2020-02-18 08:18] VITALS: BP 114/73
[2020-02-18] MEDS: FAMOTIDINE/PF 20 MG/2 ML VIAL IV SCH ×2 (08:32→19:51)
[2020-02-18] MEDS: ASCORBIC ACID 500 MG TAB PO SCH (08:32)
[2020-02-18] MEDS: ZINC SULFATE 220 CAPSULE PO SCH (08:32)
[2020-02-18] MEDS: ENOXAPARIN SODIUM 60 MG/0.6 ML SQ SCH ×2 (08:33→19:51)
[2020-02-18] MEDS: INSULIN GLARGINE 100 UNITS/ML 10 ML VIAL SQ SCH (08:34)
[2020-02-18 11:44] VITALS: BP 109/66
--- NOTE | 2020-02-18 13:02 | NUR ---
RDSCREEN - LOS X 10 Pt admitted with positive COVID-19 PNA. Pt tolerating 75gm CCD with no report of GI distress, Good PO intake at 100%. WBC 17.3, BG 198, Alb 2.0. Zinc, vitamin C, insulin meds in place. Obesity Class I. Recommned 60mL ProMod BID Recommend continue 75gm CCD RD to continue to monitor. Please notify as additional nutrition concerns arise. Thank you. Addendum: 02/18/20 at [address] Amended: Links added.
[2020-02-18 15:19] VITALS: BP 115/79
[2020-02-18 19:24] VITALS: BP 138/78
[2020-02-18 23:00] VITALS: BP 121/66
[2020-02-19 03:29] VITALS: BP 103/58
[2020-02-19 06:12] LABS: BASOPHILS % (AUTO) 0.1 % (0.0-5.0); LYMPHOCYTES % (AUTO) 5.1 % (21.0-51.0); MEAN CORPUSCULAR HEMOGLOBIN 28.4 pg (27.0-33.0); MEAN CORPUSCULAR HGB CONC 32.5 g/dL (32.0-36.0); MEAN CORPUSCULAR VOLUME 87.3 fL (79-99); MONOCYTES % (AUTO) 1.6 % (3.0-13.0); NEUTROPHILS % (AUTO) 91.5 % (40.0-77.0); PLATELET COUNT (AUTO) 309 K/uL (130-400); RED CELL DISTRIBUTION WIDTH 13.2 % (11.0-15.5)
[2020-02-19 06:31] LABS: ALBUMIN 2.1 g/dL (3.5-5.0); BILIRUBIN,TOTAL 0.4 mg/dL (0.2-1.0); CREATININE 0.8 mg/dL (0.5-1.5); POTASSIUM 4.7 mmol/L (3.5-5.1); TOTAL PROTEIN, SERUM 6.6 g/dL (6.0-8.3)
[2020-02-19] MEDS: INSULIN HUMULIN R 100 UNIT/ML 3ML SQ SCH ×7 (06:37→22:18)
[2020-02-19 08:00] VITALS: BP 133/74
[2020-02-19] MEDS: METHYLPREDNISOLONE SOD SUCC 125MG/2ML VIAL IVP SCH ×2 (10:45→22:08)
[2020-02-19] MEDS: ZINC SULFATE 220 CAPSULE PO SCH (10:45)
[2020-02-19] MEDS: FAMOTIDINE/PF 20 MG/2 ML VIAL IV SCH ×2 (10:45→22:08)
[2020-02-19] MEDS: ASCORBIC ACID 500 MG TAB PO SCH (10:45)
[2020-02-19] MEDS: ENOXAPARIN SODIUM 60 MG/0.6 ML SQ SCH ×2 (10:46→22:08)
[2020-02-19 11:00] VITALS: BP 115/57
[2020-02-19] MEDS: INSULIN GLARGINE 100 UNITS/ML 10 ML VIAL SQ SCH (11:52)
[2020-02-19 15:30] VITALS: BP 123/75
[2020-02-19 19:40] VITALS: BP 120/55
[2020-02-19 23:20] VITALS: BP 125/79
[2020-02-20 04:30] VITALS: BP 117/65
[2020-02-20] MEDS: INSULIN HUMULIN R 100 UNIT/ML 3ML SQ SCH ×7 (06:20→20:57)
[2020-02-20 07:00] VITALS: BP 108/69
[2020-02-20] MEDS: ZINC SULFATE 220 CAPSULE PO SCH (08:45)
[2020-02-20] MEDS: METHYLPREDNISOLONE SOD SUCC 125MG/2ML VIAL IVP SCH ×2 (08:45→20:55)
[2020-02-20] MEDS: FAMOTIDINE/PF 20 MG/2 ML VIAL IV SCH ×2 (08:45→20:55)
[2020-02-20] MEDS: ENOXAPARIN SODIUM 60 MG/0.6 ML SQ SCH ×2 (08:46→20:56)
[2020-02-20] MEDS: ASCORBIC ACID 500 MG TAB PO SCH (08:46)
[2020-02-20] MEDS: INSULIN GLARGINE 100 UNITS/ML 10 ML VIAL SQ SCH (08:58)
[2020-02-20 11:00] VITALS: BP 105/72
--- NOTE | 2020-02-20 12:53 | NUR ---
ROUNDING PT SITTING UP AT THE SIDE OF BED EATING LUNCH. PT VS STABLE NRB 50L, 80%, SPO2 @93%
[2020-02-20 15:00] VITALS: BP 124/82
[2020-02-20 19:45] VITALS: BP 120/69
[2020-02-20 23:10] VITALS: BP 114/60
[2020-02-21 04:00] VITALS: BP 112/65
[2020-02-21 05:30] LABS: BASOPHILS % (AUTO) 0.1 % (0.0-5.0); EOSINOPHILS % (AUTO) 0.1 % (0.0-8.0); HEMATOCRIT 44.7 % (42-54); LYMPHOCYTES % (AUTO) 4.1 % (21.0-51.0); MEAN CORPUSCULAR HEMOGLOBIN 28.7 pg (27.0-33.0); MEAN CORPUSCULAR HGB CONC 32.9 g/dL (32.0-36.0); MEAN CORPUSCULAR VOLUME 87.3 fL (79-99); MONOCYTES % (AUTO) 2.7 % (3.0-13.0); PLATELET COUNT (AUTO) 264 K/uL (130-400); RED BLOOD CELL COUNT(AUTO) 5.12 MIL/uL (4.50-6.20); RED CELL DISTRIBUTION WIDTH 13.3 % (11.0-15.5); WHITE BLOOD COUNT (AUTO) 18.7 K/uL (4.8-10.8)
[2020-02-21 05:52] LABS: B-TYPE NATRIURETIC PEPTIDE < 5 pg/mL (0-100)
[2020-02-21 05:59] LABS: ALBUMIN 2.1 g/dL (3.5-5.0); BILIRUBIN,TOTAL 0.3 mg/dL (0.2-1.0); CREATININE 0.9 mg/dL (0.5-1.5); CRP QUANTITATIVE 4.5 mg/L (0.00-9.0); MAGNESIUM 2.4 mg/dL (1.80-2.40); PHOSPHORUS 3.9 mg/dL (2.5-4.9); TOTAL PROTEIN, SERUM 5.9 g/dL (6.0-8.3)
[2020-02-21] MEDS: INSULIN HUMULIN R 100 UNIT/ML 3ML SQ SCH ×6 (06:35→21:00)
[2020-02-21 07:00] VITALS: BP 112/69
[2020-02-21] MEDS: METHYLPREDNISOLONE SOD SUCC 125MG/2ML VIAL IVP SCH (07:52)
[2020-02-21] MEDS ORDERED: METHYLPREDNISOLONE SOD SUCC 125MG/2ML VIAL IVP SCH (08:00)
[2020-02-21] MEDS: ASCORBIC ACID 500 MG TAB PO SCH (08:39)
[2020-02-21] MEDS: FAMOTIDINE/PF 20 MG/2 ML VIAL IV SCH ×2 (08:39→21:03)
[2020-02-21] MEDS: ZINC SULFATE 220 CAPSULE PO SCH (08:39)
[2020-02-21] MEDS: ENOXAPARIN SODIUM 60 MG/0.6 ML SQ SCH ×2 (08:39→21:03)
[2020-02-21] MEDS: INSULIN GLARGINE 100 UNITS/ML 10 ML VIAL SQ SCH (08:41)
[2020-02-21 11:00] VITALS: BP 126/76
[2020-02-21 15:00] VITALS: BP 132/79
--- NOTE | 2020-02-21 16:38 | NUR ---
SITTING UP ON SIDE OF BED WATCHING TELEVISION, W/O C/O. HIGH FLOW N/C IN PLACE. CALL LIGHT WITHIN REACH.
[2020-02-21] MEDS: METHYLPREDNISOLONE SOD SUCC 40MG/ML 1ML IVP SCH ×2 (17:33→21:03)
[2020-02-21 20:00] VITALS: BP 139/88
[2020-02-21 23:53] VITALS: BP 123/71
[2020-02-22 03:37] VITALS: BP 122/73
[2020-02-22 06:03] LABS: BASOPHILS % (AUTO) 0.2 % (0.0-5.0); EOSINOPHILS % (AUTO) 0.1 % (0.0-8.0); HEMATOCRIT 47.4 % (42-54); LYMPHOCYTES % (AUTO) 7.4 % (21.0-51.0); MEAN CORPUSCULAR HEMOGLOBIN 28.2 pg (27.0-33.0); MEAN CORPUSCULAR HGB CONC 32.5 g/dL (32.0-36.0); MEAN CORPUSCULAR VOLUME 86.8 fL (79-99); MONOCYTES % (AUTO) 3.1 % (3.0-13.0); PLATELET COUNT (AUTO) 246 K/uL (130-400); RED BLOOD CELL COUNT(AUTO) 5.46 MIL/uL (4.50-6.20); RED CELL DISTRIBUTION WIDTH 13.4 % (11.0-15.5); WHITE BLOOD COUNT (AUTO) 18.3 K/uL (4.8-10.8)
[2020-02-22 06:23] LABS: ALBUMIN 2.2 g/dL (3.5-5.0); BILIRUBIN,TOTAL 0.4 mg/dL (0.2-1.0); CREATININE 0.7 mg/dL (0.5-1.5); POTASSIUM 4.6 mmol/L (3.5-5.1); TOTAL PROTEIN, SERUM 6.2 g/dL (6.0-8.3)
[2020-02-22] MEDS: INSULIN HUMULIN R 100 UNIT/ML 3ML SQ SCH ×6 (06:33→22:13)
[2020-02-22 07:00] VITALS: BP 129/72
[2020-02-22] MEDS: ASCORBIC ACID 500 MG TAB PO SCH (08:25)
[2020-02-22] MEDS: ZINC SULFATE 220 CAPSULE PO SCH (08:25)
[2020-02-22] MEDS: FAMOTIDINE/PF 20 MG/2 ML VIAL IV SCH ×2 (08:26→22:08)
[2020-02-22] MEDS: METHYLPREDNISOLONE SOD SUCC 40MG/ML 1ML IVP SCH ×3 (08:26→22:09)
[2020-02-22] MEDS: ENOXAPARIN SODIUM 60 MG/0.6 ML SQ SCH ×2 (08:27→22:09)
[2020-02-22] MEDS: INSULIN GLARGINE 100 UNITS/ML 10 ML VIAL SQ SCH (08:27)
--- NOTE | 2020-02-22 10:26 | NUR ---
RECEIVED CALL FROM PT.'S DAUGHTER, LUCINDA, QUESTIONS ANSWERED AND VERBALIZED UNDERSTANDING.
[2020-02-22 11:00] VITALS: BP 123/76
[2020-02-22] MEDS: NYSTATIN 100000 UNIT/ML 5ML UDCUP PO SCH ×3 (12:22→22:08)
--- NOTE | 2020-02-22 14:57 | NUR ---
RESTING IN BED IN RIGHT SIDE-LYING POSITION, WATCHING TELEVISION. RESP.'S EVEN AND UNLABORED. O2 SAT.-94%, P-88, PER CONTINUOUS PULSE OXIMETER AT BEDSIDE. CALL LIGHT WITHIN REACH. BLINDS OPEN.
[2020-02-22 15:00] VITALS: BP 104/62
--- NOTE | 2020-02-22 18:17 | NUR ---
SITTING UP ON SIDE OF BED WATCHING TELEVISION. RESP.'S EVEN AND UNLABORED. O2 SAT.-93%, P-99, PER CONTINUOUS PULSE OXIMETER AT BEDSIDE. CALL LIGHT WITHIN REACH. BLINDS OPEN.
[2020-02-22 19:38] VITALS: BP 130/88
[2020-02-22 23:52] VITALS: BP 112/77
[2020-02-23 03:29] VITALS: BP 113/70
[2020-02-23] MEDS: INSULIN HUMULIN R 100 UNIT/ML 3ML SQ SCH ×7 (06:44→20:44)
[2020-02-23] MEDS: FAMOTIDINE/PF 20 MG/2 ML VIAL IV SCH ×2 (08:16→20:42)
[2020-02-23] MEDS: METHYLPREDNISOLONE SOD SUCC 40MG/ML 1ML IVP SCH ×3 (08:16→20:42)
[2020-02-23] MEDS: NYSTATIN 100000 UNIT/ML 5ML UDCUP PO SCH ×4 (08:18→20:42)
[2020-02-23] MEDS: ASCORBIC ACID 500 MG TAB PO SCH (08:18)
[2020-02-23] MEDS: ENOXAPARIN SODIUM 60 MG/0.6 ML SQ SCH ×2 (08:18→20:42)
[2020-02-23] MEDS: ZINC SULFATE 220 CAPSULE PO SCH (08:19)
[2020-02-23] MEDS: INSULIN GLARGINE 100 UNITS/ML 10 ML VIAL SQ SCH (08:20)
[2020-02-23 09:04] VITALS: BP 113/70
--- NOTE | 2020-02-23 10:00 | NUR ---
ASSESSMENT PT AWAKE AND ORIENTED, SITTING ON SIDE OF BED, O2 PER HIGH FLOW NASAL CANULA, O2 SAT 89-92% , STATES FEELING BETTER. PT STATES HAVING NASAL CONGESTION, PRN NASAL SPRAY ADMINISTERED. CALL LIGHT WITHIN REACH
[2020-02-23] MEDS: SODIUM CHLORIDE 30 ML DROPS NS PRN ×2 (10:11→16:58)
--- NOTE | 2020-02-23 13:00 | NUR ---
ASSESSMENT PT STATES ABLE TO BREATH BETTER AFTER PRN SALINE SPRAY ADMINISTRATION. PT IN PRONE POSITION, O2 SAT 92-94%, CALL LIGHT WITHIN REACH.
[2020-02-23 13:10] VITALS: BP 103/66
[2020-02-23 16:00] VITALS: BP 115/77
[2020-02-23 20:19] VITALS: BP 133/72
[2020-02-24] VITALS (7 sets, daily range): BP systolic 100–133; BP diastolic 47–90
[2020-02-24] MEDS: INSULIN HUMULIN R 100 UNIT/ML 3ML SQ SCH ×7 (04:17→20:37)
[2020-02-24] MEDS: METHYLPREDNISOLONE SOD SUCC 40MG/ML 1ML IVP SCH ×2 (07:54→17:09)
[2020-02-24] MEDS: INSULIN GLARGINE 100 UNITS/ML 10 ML VIAL SQ SCH (07:56)
--- NOTE | 2020-02-24 08:00 | NUR ---
ASSESSMENT COMPLETED, C/O OR THROAT AND TONGUE SORE, SPEAKING WITH DAUGHTER ON PHONE WHILE IN ROOM DURING ASSESSMENT, RELAING PATIENTS CONCERNS, SOB W/ LABORED RESP ON EXERTION. SATS 86-90%. AOX3.
--- NOTE | 2020-02-24 09:00 | NUR ---
RESPIRATORY CONTINUE TO STRUGGLE W/RESP EFFORT, SATS 78-80% RESP IN AND UP TO 80% ON HINC. SATS UP TO 90-100%. PATIENT BETTER STILL C/O TONGUE AND THROAT HURTING, NYSTATIN GIVEN AND INSTRUCTED ON USE.
[2020-02-24] MEDS: ZINC SULFATE 220 CAPSULE PO SCH (10:00)
[2020-02-24] MEDS: ENOXAPARIN SODIUM 60 MG/0.6 ML SQ SCH ×2 (10:00→20:38)
[2020-02-24] MEDS: NYSTATIN 100000 UNIT/ML 5ML UDCUP PO SCH ×4 (10:00→20:38)
[2020-02-24] MEDS: FAMOTIDINE/PF 20 MG/2 ML VIAL IV SCH ×2 (10:00→20:38)
[2020-02-24] MEDS: ASCORBIC ACID 500 MG TAB PO SCH (10:00)
[2020-02-24] MEDS: BENZOCAINE/MENTH/CETYLPYRD CL 1 EACH LOZENGE MM PRN ×2 (16:18→20:42)
--- NOTE | 2020-02-24 17:30 | NUR ---
MULTIPLE CALLS FROM 2 DAUGHTERS THROUGHOUT DAY WITH C/O OF HIS MOUTH IS HURTING, EXPLAINED TO THEM MULTIPLE TIMES HE HAS ULCER ON TONGUE AND MOUTH AND IS GETING NYSTATIN AND LOZENGERS ORDERED BY MD. DR SHRESTHA IN TO SEE PATIENT AND STATES HE WILL SPEAK WITH DAUGHTER AFTER MAKING HIS ROUNDS. VSS PATIENT SITTING UP TO SIDE OF BED HFNC 45/100% W SATS 96-100%.
[2020-02-24] MEDS: SODIUM CHLORIDE 30 ML DROPS NS PRN (20:42)
[2020-02-25] MEDS: METHYLPREDNISOLONE SOD SUCC 40MG/ML 1ML IVP SCH ×3 (00:22→16:41)
[2020-02-25 04:52] LABS: BASOPHILS % (AUTO) 0.1 % (0.0-5.0); HEMATOCRIT 46.4 % (42-54); LYMPHOCYTES % (AUTO) 4.4 % (21.0-51.0); MEAN CORPUSCULAR HEMOGLOBIN 28.5 pg (27.0-33.0); MEAN CORPUSCULAR VOLUME 86.6 fL (79-99); MONOCYTES % (AUTO) 1.1 % (3.0-13.0); NEUTROPHILS % (AUTO) 93.3 % (40.0-77.0); PLATELET COUNT (AUTO) 224 K/uL (130-400); RED BLOOD CELL COUNT(AUTO) 5.36 MIL/uL (4.50-6.20); RED CELL DISTRIBUTION WIDTH 13.8 % (11.0-15.5); WHITE BLOOD COUNT (AUTO) 15.1 K/uL (4.8-10.8)
[2020-02-25 05:04] VITALS: BP 107/69
[2020-02-25 05:30] LABS: ALBUMIN 2.3 g/dL (3.5-5.0); BILIRUBIN,TOTAL 0.5 mg/dL (0.2-1.0); CREATININE 0.7 mg/dL (0.5-1.5); CRP QUANTITATIVE 11.2 mg/L (0.00-9.0); POTASSIUM 4.7 mmol/L (3.5-5.1); TOTAL PROTEIN, SERUM 6.3 g/dL (6.0-8.3)
[2020-02-25] MEDS: INSULIN HUMULIN R 100 UNIT/ML 3ML SQ SCH ×6 (06:29→20:43)
[2020-02-25] MEDS: ASCORBIC ACID 500 MG TAB PO SCH (08:14)
[2020-02-25] MEDS: ZINC SULFATE 220 CAPSULE PO SCH (08:14)
[2020-02-25] MEDS: ENOXAPARIN SODIUM 60 MG/0.6 ML SQ SCH ×2 (08:15→20:43)
[2020-02-25] MEDS: FAMOTIDINE/PF 20 MG/2 ML VIAL IV SCH ×2 (08:15→20:43)
[2020-02-25] MEDS: NYSTATIN 100000 UNIT/ML 5ML UDCUP PO SCH ×4 (08:17→20:43)
[2020-02-25 08:21] VITALS: BP 113/72
[2020-02-25] MEDS: INSULIN GLARGINE 100 UNITS/ML 10 ML VIAL SQ SCH (08:21)
--- NOTE | 2020-02-25 09:44 | NUR ---
RESTING IN BED IN PRONE POSITION, RESP.'S EVEN AND UNLABORED. O2 SAT. 100%, P-90, PER CONTINUOUS PULSE OXIMETER AT BEDSIDE. ROOM BLINDS OPEN.
[2020-02-25 12:38] VITALS: BP 112/88
--- NOTE | 2020-02-25 13:34 | NUR ---
DC PLAN VISITED WITH PATIENT SAW THROUGH WINDOW. PATIENT PRONE. SPOKE TO NURSE SAID THAT PATIENT D SAT TO 70% WHEN TRYING TO EAT. HAD TO PRONE TO GET O2 BACK UP. Addendum: 02/25/20 at 1343 by PERNELL BARRON RN CM Amended: Links added.
--- NOTE | 2020-02-25 16:05 | NUR ---
RESTING IN BED IN PRONE POSITION, RESP.'S EVEN AND UNLABORED. O2 SAT. 97%, P-95, PER CONTINUOUS PULSE OXIMETER AT BEDSIDE. BLINDS OPEN.
[2020-02-25 16:10] VITALS: BP 116/75
[2020-02-25] MEDS ORDERED: INSULIN HUMULIN R 100 UNIT/ML 3ML SQ SCH (17:00)
[2020-02-25] MEDS: BENZOCAINE/MENTH/CETYLPYRD CL 1 EACH LOZENGE MM PRN ×2 (17:07→20:44)
[2020-02-25 20:12] VITALS: BP 127/78
[2020-02-25 23:27] VITALS: BP 120/81
[2020-02-26] VITALS (7 sets, daily range): BP systolic 101–128; BP diastolic 63–87
[2020-02-26] MEDS: METHYLPREDNISOLONE SOD SUCC 40MG/ML 1ML IVP SCH ×4 (00:01→23:39)
[2020-02-26 05:30] LABS: BASOPHILS % (AUTO) 0.1 % (0.0-5.0); HEMATOCRIT 46.4 % (42-54); LYMPHOCYTES % (AUTO) 6.8 % (21.0-51.0); MEAN CORPUSCULAR HEMOGLOBIN 28.3 pg (27.0-33.0); MEAN CORPUSCULAR VOLUME 85.9 fL (79-99); MONOCYTES % (AUTO) 2.9 % (3.0-13.0); NEUTROPHILS % (AUTO) 89.1 % (40.0-77.0); PLATELET COUNT (AUTO) 218 K/uL (130-400); WHITE BLOOD COUNT (AUTO) 15.6 K/uL (4.8-10.8)
[2020-02-26 06:03] LABS: ALBUMIN 2.4 g/dL (3.5-5.0); BILIRUBIN,TOTAL 0.4 mg/dL (0.2-1.0); CREATININE 0.8 mg/dL (0.5-1.5); CRP QUANTITATIVE 10.1 mg/L (0.00-9.0); POTASSIUM 4.7 mmol/L (3.5-5.1); TOTAL PROTEIN, SERUM 6.4 g/dL (6.0-8.3)
[2020-02-26] MEDS: INSULIN HUMULIN R 100 UNIT/ML 3ML SQ SCH ×7 (06:46→20:34)
[2020-02-26] MEDS: ZINC SULFATE 220 CAPSULE PO SCH (08:04)
[2020-02-26] MEDS: FAMOTIDINE/PF 20 MG/2 ML VIAL IV SCH ×2 (08:04→20:35)
[2020-02-26] MEDS: ASCORBIC ACID 500 MG TAB PO SCH (08:04)
[2020-02-26] MEDS: NYSTATIN 100000 UNIT/ML 5ML UDCUP PO SCH ×4 (08:04→20:35)
[2020-02-26] MEDS: ENOXAPARIN SODIUM 60 MG/0.6 ML SQ SCH ×2 (08:05→20:35)
[2020-02-26] MEDS: INSULIN GLARGINE 100 UNITS/ML 10 ML VIAL SQ SCH (08:06)
--- NOTE | 2020-02-26 09:25 | NUR ---
SITTING UP ON SIDE OF BED EATING BREAKFAST. O2 SAT.-89%, P-116, PER CONTINUOUS PULSE OXIMETER AT BEDSIDE. DENIES ANY C/O AT THIS TIME. CALL LIGHT WITHIN REACH, VERBALIZED ABILITY TO USE.
--- NOTE | 2020-02-26 10:30 | NUR ---
DR. Hayden SHRESTHA IN ROOM SPEAKING WITH PT. RE:PLAN OF CARE; QUESTIONS ANSWERED BY DR. SHRESTHA.
--- NOTE | 2020-02-26 11:45 | NUR ---
SPOKE WITH PT. RE:ORDER FOR 2 UNITS CONVALESCENT PLASMA TO BE TRANSFUSED AND RATIONALE EXPLAINED; PT. VERBALIZED UNDERSTANDING AND GIVES CONSENT FOR TRANSFUSION.
--- NOTE | 2020-02-26 12:01 | NUR ---
RECEIVED CALL FROM PT.'S DAUGHTER, GLENBURN. QUESTIONS ANSWERED AND DAUGHTER VERBALIZED UNDERSTANDING.
[2020-02-26] MEDS ORDERED: SODIUM CHLORIDE 0.9% 250 ML IV ONE (16:21)
--- NOTE | 2020-02-26 17:00 | NUR ---
CONVALESCENT PLASMA TRANSFUSION STARTED AFTER POSSIBLE S/S OF ADVERSE EFFECTS EXPLAINED TO PT. INFUSION IN PROGRESS, DENIES ANY C/O AT THIS TIME. THIS NURSE PRESENT DURING FIRST 5 MIN OF TRANSFUSION. CALL LIGHT WITHIN REACH.
[2020-02-26] MEDS: BENZOCAINE/MENTH/CETYLPYRD CL 1 EACH LOZENGE MM PRN ×2 (17:39→20:35)
[2020-02-26] MEDS: GUAIFENESIN-DM 200/20 MG 10 ML PO PRN (17:39)
[2020-02-27 03:20] VITALS: BP 102/50
[2020-02-27 06:15] LABS: BASOPHILS % (AUTO) 0.1 % (0.0-5.0); EOSINOPHILS % (AUTO) 0.1 % (0.0-8.0); HEMATOCRIT 43.2 % (42-54); LYMPHOCYTES % (AUTO) 8.4 % (21.0-51.0); MEAN CORPUSCULAR HEMOGLOBIN 28.1 pg (27.0-33.0); MEAN CORPUSCULAR HGB CONC 32.2 g/dL (32.0-36.0); MEAN CORPUSCULAR VOLUME 87.4 fL (79-99); MONOCYTES % (AUTO) 2.8 % (3.0-13.0); NEUTROPHILS % (AUTO) 87.5 % (40.0-77.0); PLATELET COUNT (AUTO) 187 K/uL (130-400); RED BLOOD CELL COUNT(AUTO) 4.94 MIL/uL (4.50-6.20); WHITE BLOOD COUNT (AUTO) 14.9 K/uL (4.8-10.8)
[2020-02-27] MEDS: INSULIN HUMULIN R 100 UNIT/ML 3ML SQ SCH ×7 (06:36→22:46)
[2020-02-27 06:39] LABS: ALBUMIN 2.5 g/dL (3.5-5.0); BILIRUBIN,TOTAL 0.4 mg/dL (0.2-1.0); CREATININE 0.6 mg/dL (0.5-1.5); CRP QUANTITATIVE 5.5 mg/L (0.00-9.0); POTASSIUM 4.2 mmol/L (3.5-5.1); TOTAL PROTEIN, SERUM 6.1 g/dL (6.0-8.3)
[2020-02-27 08:19] VITALS: BP 121/75
[2020-02-27] MEDS: FAMOTIDINE/PF 20 MG/2 ML VIAL IV SCH ×2 (09:15→21:39)
[2020-02-27] MEDS: NYSTATIN 100000 UNIT/ML 5ML UDCUP PO SCH ×4 (09:15→21:40)
[2020-02-27] MEDS: ASCORBIC ACID 500 MG TAB PO SCH (09:16)
[2020-02-27] MEDS: ZINC SULFATE 220 CAPSULE PO SCH (09:16)
[2020-02-27] MEDS: ENOXAPARIN SODIUM 60 MG/0.6 ML SQ SCH ×2 (09:18→21:47)
[2020-02-27] MEDS: INSULIN GLARGINE 100 UNITS/ML 10 ML VIAL SQ SCH (09:41)
--- NOTE | 2020-02-27 11:00 | NUR ---
cm note call received from pt's daughter any Farrell ([phone])and she states that pt and family do not wish to go to [facility], facility, discussed alternate level of care including snf, but daughter states will discuss with md, due to feels pt is not ready. updated primary nurse.
[2020-02-27 12:07] VITALS: BP 117/81
--- NOTE | 2020-02-27 12:21 | NUR ---
Medication Hold ACHS Insulin held d/t pt's CB and small amount of lunch eaten. Pt received 20 units of Lantus @ 0800.
[2020-02-27] MEDS: METHYLPREDNISOLONE SOD SUCC 40MG/ML 1ML IVP SCH ×2 (13:13→16:32)
[2020-02-27 16:26] VITALS: BP 113/67
[2020-02-27 21:24] VITALS: BP 108/67
[2020-02-28 00:24] VITALS: BP 128/92
[2020-02-28] MEDS: METHYLPREDNISOLONE SOD SUCC 40MG/ML 1ML IVP SCH ×2 (00:53→08:18)
[2020-02-28 04:44] VITALS: BP 137/82
[2020-02-28 05:29] LABS: BASOPHILS % (AUTO) 0.1 % (0.0-5.0); EOSINOPHILS % (AUTO) 0.1 % (0.0-8.0); HEMATOCRIT 44.8 % (42-54); MEAN CORPUSCULAR HEMOGLOBIN 28.5 pg (27.0-33.0); MEAN CORPUSCULAR HGB CONC 32.8 g/dL (32.0-36.0); MONOCYTES % (AUTO) 2.4 % (3.0-13.0); NEUTROPHILS % (AUTO) 90.4 % (40.0-77.0); PLATELET COUNT (AUTO) 164 K/uL (130-400); RED BLOOD CELL COUNT(AUTO) 5.15 MIL/uL (4.50-6.20); RED CELL DISTRIBUTION WIDTH 13.9 % (11.0-15.5); WHITE BLOOD COUNT (AUTO) 12.3 K/uL (4.8-10.8)
[2020-02-28 06:00] LABS: ALBUMIN 2.5 g/dL (3.5-5.0); BILIRUBIN,TOTAL 0.4 mg/dL (0.2-1.0); CREATININE 0.9 mg/dL (0.5-1.5); CRP QUANTITATIVE 4.6 mg/L (0.00-9.0); POTASSIUM 5.2 mmol/L (3.5-5.1); TOTAL PROTEIN, SERUM 6.4 g/dL (6.0-8.3)
[2020-02-28] MEDS: INSULIN HUMULIN R 100 UNIT/ML 3ML SQ SCH ×7 (06:36→20:36)
[2020-02-28] MEDS: ZINC SULFATE 220 CAPSULE PO SCH (07:59)
[2020-02-28] MEDS: FAMOTIDINE/PF 20 MG/2 ML VIAL IV SCH ×2 (07:59→20:19)
[2020-02-28] MEDS: NYSTATIN 100000 UNIT/ML 5ML UDCUP PO SCH ×4 (07:59→20:19)
[2020-02-28] MEDS: ASCORBIC ACID 500 MG TAB PO SCH (07:59)
[2020-02-28] MEDS: ENOXAPARIN SODIUM 60 MG/0.6 ML SQ SCH ×2 (08:00→20:19)
[2020-02-28] MEDS: INSULIN GLARGINE 100 UNITS/ML 10 ML VIAL SQ SCH ×2 (08:00→08:02)
[2020-02-28 08:15] VITALS: BP 114/77
[2020-02-28] MEDS ORDERED: SODIUM POLYSTYRENE SULFONATE 15 GM/60 ML ML PO SCH (10:30)
[2020-02-28 12:08] VITALS: BP 138/89
[2020-02-28 16:13] VITALS: BP 134/89
[2020-02-28 16:37] LABS: CREATININE 0.8 mg/dL (0.5-1.5); POTASSIUM 4.6 mmol/L (3.5-5.1)
[2020-02-28] MEDS: BENZOCAINE/MENTH/CETYLPYRD CL 1 EACH LOZENGE MM PRN (20:22)
[2020-02-28 20:44] VITALS: BP 99/70
[2020-02-29 00:17] VITALS: BP 122/79
[2020-02-29 04:01] VITALS: BP 100/84
[2020-02-29 05:16] LABS: BASOPHILS % (AUTO) 0.1 % (0.0-5.0); EOSINOPHILS % (AUTO) 3.4 % (0.0-8.0); HEMATOCRIT 49.9 % (42-54); LYMPHOCYTES % (AUTO) 17.5 % (21.0-51.0); MEAN CORPUSCULAR HEMOGLOBIN 28.1 pg (27.0-33.0); MEAN CORPUSCULAR HGB CONC 32.3 g/dL (32.0-36.0); MEAN CORPUSCULAR VOLUME 87.2 fL (79-99); MONOCYTES % (AUTO) 2.4 % (3.0-13.0); NEUTROPHILS % (AUTO) 75.5 % (40.0-77.0); PLATELET COUNT (AUTO) 163 K/uL (130-400); RED BLOOD CELL COUNT(AUTO) 5.72 MIL/uL (4.50-6.20); RED CELL DISTRIBUTION WIDTH 13.9 % (11.0-15.5); WHITE BLOOD COUNT (AUTO) 14.8 K/uL (4.8-10.8)
[2020-02-29] MEDS: INSULIN HUMULIN R 100 UNIT/ML 3ML SQ SCH ×7 (06:02→20:06)
[2020-02-29 06:21] LABS: ALBUMIN 2.8 g/dL (3.5-5.0); BILIRUBIN,TOTAL 0.6 mg/dL (0.2-1.0); CREATININE 0.7 mg/dL (0.5-1.5); POTASSIUM 3.8 mmol/L (3.5-5.1); TOTAL PROTEIN, SERUM 6.8 g/dL (6.0-8.3)
[2020-02-29 07:00] VITALS: BP 108/73
--- NOTE | 2020-02-29 08:23 | NUR ---
REPORTED TO ERIC THE PATIENT'S HEART RATE OF 120S TO 130S SUSTAINING. INFORMED HER THAT THERE IS NO MEDICATION ORDERED FOR THE ELEVATED HEART RATE. SHE VERBALIZED THAT SHE WILL ORDER METOPROLOL.
[2020-02-29] MEDS ORDERED: METOPROLOL TARTRATE 25 MG TAB PO SCH (08:30)
[2020-02-29] MEDS: NYSTATIN 100000 UNIT/ML 5ML UDCUP PO SCH ×4 (09:00→20:44)
[2020-02-29] MEDS: ENOXAPARIN SODIUM 60 MG/0.6 ML SQ SCH ×2 (09:00→20:44)
[2020-02-29] MEDS: ASCORBIC ACID 500 MG TAB PO SCH (09:00)
[2020-02-29] MEDS: ZINC SULFATE 220 CAPSULE PO SCH (09:00)
[2020-02-29] MEDS: FAMOTIDINE/PF 20 MG/2 ML VIAL IV SCH ×2 (09:00→20:44)
[2020-02-29] MEDS: DEXAMETHASONE SOD PHOSPHATE 4 MG/ML 1ML VIAL IVP SCH (09:00)
[2020-02-29] MEDS: INSULIN GLARGINE 100 UNITS/ML 10 ML VIAL SQ SCH (09:04)
[2020-02-29 11:00] VITALS: BP 112/67
[2020-02-29] MEDS ORDERED: SODIUM CHLORIDE 45 ML SPRY NS PRN (11:45)
[2020-02-29 16:00] VITALS: BP 131/92
[2020-02-29 20:02] VITALS: BP 116/65
[2020-02-29] MEDS: METOPROLOL TARTRATE 25 MG TAB PO SCH (20:44)
[2020-02-29] MEDS: DiphenhydrAMINE HCL 50 MG/ML VIAL IV PRN (22:06)
[2020-03-01 00:11] VITALS: BP 95/63
[2020-03-01 04:20] VITALS: BP 100/61
[2020-03-01 05:24] LABS: BASOPHILS % (AUTO) 0.1 % (0.0-5.0); EOSINOPHILS % (AUTO) 3.1 % (0.0-8.0); HEMATOCRIT 45.5 % (42-54); LYMPHOCYTES % (AUTO) 12.7 % (21.0-51.0); MEAN CORPUSCULAR HEMOGLOBIN 28.7 pg (27.0-33.0); MEAN CORPUSCULAR HGB CONC 33.2 g/dL (32.0-36.0); MEAN CORPUSCULAR VOLUME 86.5 fL (79-99); MONOCYTES % (AUTO) 2.7 % (3.0-13.0); NEUTROPHILS % (AUTO) 80.6 % (40.0-77.0); PLATELET COUNT (AUTO) 127 K/uL (130-400); RED BLOOD CELL COUNT(AUTO) 5.26 MIL/uL (4.50-6.20); RED CELL DISTRIBUTION WIDTH 13.9 % (11.0-15.5); WHITE BLOOD COUNT (AUTO) 13.4 K/uL (4.8-10.8)
[2020-03-01 05:46] LABS: ALBUMIN 2.3 g/dL (3.5-5.0); BILIRUBIN,TOTAL 0.5 mg/dL (0.2-1.0); CREATININE 0.5 mg/dL (0.5-1.5); POTASSIUM 3.6 mmol/L (3.5-5.1); TOTAL PROTEIN, SERUM 5.9 g/dL (6.0-8.3)
[2020-03-01] MEDS: INSULIN HUMULIN R 100 UNIT/ML 3ML SQ SCH ×7 (06:21→21:00)
[2020-03-01 08:00] VITALS: BP 91/58
[2020-03-01] MEDS ORDERED: INSULIN GLARGINE 100 UNITS/ML 10 ML VIAL SQ SCH (08:00)
[2020-03-01] MEDS: ASCORBIC ACID 500 MG TAB PO SCH (08:05)
[2020-03-01] MEDS: ZINC SULFATE 220 CAPSULE PO SCH (08:05)
[2020-03-01] MEDS: NYSTATIN 100000 UNIT/ML 5ML UDCUP PO SCH ×4 (08:06→21:07)
[2020-03-01] MEDS: DEXAMETHASONE SOD PHOSPHATE 4 MG/ML 1ML VIAL IVP SCH (08:06)
[2020-03-01] MEDS: FAMOTIDINE/PF 20 MG/2 ML VIAL IV SCH ×2 (08:06→21:08)
[2020-03-01] MEDS: METOPROLOL TARTRATE 25 MG TAB PO SCH ×2 (08:06→21:00)
[2020-03-01] MEDS: ENOXAPARIN SODIUM 60 MG/0.6 ML SQ SCH ×2 (08:07→21:09)
[2020-03-01 12:00] VITALS: BP 109/77
[2020-03-01 16:00] VITALS: BP 120/85
[2020-03-01] MEDS ORDERED: POTASSIUM CHLORIDE 20 MEQ ERTAB PO ONE (18:14)
[2020-03-01] MEDS ORDERED: POTASSIUM CHLORIDE 20 MEQ ERTAB PO SCH (19:00)
[2020-03-01 21:02] VITALS: BP 113/72
[2020-03-01] MEDS: DiphenhydrAMINE HCL 50 MG/ML VIAL IV PRN (22:50)
[2020-03-02 00:10] VITALS: BP 108/71
[2020-03-02 04:25] VITALS: BP 102/66
[2020-03-02 06:07] LABS: BASOPHILS % (AUTO) 0.1 % (0.0-5.0); EOSINOPHILS % (AUTO) 4.8 % (0.0-8.0); HEMATOCRIT 44.9 % (42-54); LYMPHOCYTES % (AUTO) 17.3 % (21.0-51.0); MEAN CORPUSCULAR HEMOGLOBIN 28.5 pg (27.0-33.0); MEAN CORPUSCULAR VOLUME 86.5 fL (79-99); NEUTROPHILS % (AUTO) 73.9 % (40.0-77.0); PLATELET COUNT (AUTO) 126 K/uL (130-400); RED BLOOD CELL COUNT(AUTO) 5.19 MIL/uL (4.50-6.20); RED CELL DISTRIBUTION WIDTH 14.1 % (11.0-15.5); WHITE BLOOD COUNT (AUTO) 9.1 K/uL (4.8-10.8)
[2020-03-02 06:22] LABS: ALBUMIN 2.4 g/dL (3.5-5.0); BILIRUBIN,TOTAL 0.5 mg/dL (0.2-1.0); CREATININE 0.7 mg/dL (0.5-1.5); POTASSIUM 4.4 mmol/L (3.5-5.1)
[2020-03-02] MEDS: INSULIN HUMULIN R 100 UNIT/ML 3ML SQ SCH ×8 (06:34→21:01)
--- NOTE | 2020-03-02 08:15 | NUR ---
AM ASSESSMENT PT LAYING IN BED, HOB ELEVATED 30 DEGREES, RESTING. A/O X 3. SOB ON EXERTION. NO DISTRESS NOTED @ THIS TIME. O2 NRBM PARTIAL @ 15L, FIO2 70%. DENIES CHEST PAIN. C/O HEART RATE GOING FAST IN [place]. TELE: AFIB 120-130s. PT CURRENTLY ON AMIODARONE GTT. AWARE OF PT'S STATUS. DENIES N/V AND/OR DIARRHEA. BEDREST. INSTRUCTED TO CALL FOR ASSISTANCE. CALL MIGUEL W/IN REACH. Addendum: 03/02/20 at 1411 by KALEY HEWITT RN RN ERROR ENTRY: NOTE ENTERED ON WRONG PT.
[2020-03-02 08:17] VITALS: BP 127/75
[2020-03-02] MEDS: FAMOTIDINE/PF 20 MG/2 ML VIAL IV SCH (08:28)
[2020-03-02] MEDS: ASCORBIC ACID 500 MG TAB PO SCH (08:28)
[2020-03-02] MEDS: METOPROLOL TARTRATE 25 MG TAB PO SCH ×2 (08:28→20:52)
[2020-03-02] MEDS: ZINC SULFATE 220 CAPSULE PO SCH (08:28)
[2020-03-02] MEDS: NYSTATIN 100000 UNIT/ML 5ML UDCUP PO SCH ×4 (08:28→20:51)
[2020-03-02] MEDS: ENOXAPARIN SODIUM 60 MG/0.6 ML SQ SCH ×3 (08:29→21:45)
[2020-03-02] MEDS: DEXAMETHASONE SOD PHOSPHATE 4 MG/ML 1ML VIAL IVP SCH (08:29)
--- NOTE | 2020-03-02 09:10 | NUR ---
MD VISIT DR ALMAZAN IN TO SEE PT. UPDATED ON PT'S CURRENT STATUS & PLAN OF CARE. MD TO PLACE CALL TO DR SHRESTHA. TO ENTER ORDERS. Addendum: 03/02/20 at 1414 by KALEY HEWITT RN RN ERROR ENTRY: NOTE ENTERED ON WRONG PT.
[2020-03-02 11:13] VITALS: BP 103/67
[2020-03-02 16:16] VITALS: BP 112/80
[2020-03-02] MEDS: BENZOCAINE/MENTH/CETYLPYRD CL 1 EACH LOZENGE MM PRN (16:26)
[2020-03-02 20:00] VITALS: BP 113/76
[2020-03-02] MEDS: FAMOTIDINE 20MG TAB 20 MG TAB PO SCH (20:51)
[2020-03-02] MEDS: DIPHENHYDRAMINE HCL 25 MG CAPSULE PO PRN (22:15)
[2020-03-03] VITALS: BP 112/80
[2020-03-03 04:00] VITALS: BP 110/77
[2020-03-03 05:06] LABS: BASOPHILS % (AUTO) 0.1 % (0.0-5.0); EOSINOPHILS % (AUTO) 4.4 % (0.0-8.0); HEMATOCRIT 46.3 % (42-54); LYMPHOCYTES % (AUTO) 23.5 % (21.0-51.0); MEAN CORPUSCULAR HEMOGLOBIN 28.8 pg (27.0-33.0); MEAN CORPUSCULAR HGB CONC 33.5 g/dL (32.0-36.0); MEAN CORPUSCULAR VOLUME 86.1 fL (79-99); MONOCYTES % (AUTO) 3.2 % (3.0-13.0); NEUTROPHILS % (AUTO) 68.1 % (40.0-77.0); PLATELET COUNT (AUTO) 130 K/uL (130-400); RED BLOOD CELL COUNT(AUTO) 5.38 MIL/uL (4.50-6.20); WHITE BLOOD COUNT (AUTO) 8.7 K/uL (4.8-10.8)
[2020-03-03 05:26] LABS: ALBUMIN 2.6 g/dL (3.5-5.0); BILIRUBIN,TOTAL 0.8 mg/dL (0.2-1.0); CREATININE 0.7 mg/dL (0.5-1.5); CRP QUANTITATIVE 20.8 mg/L (0.00-9.0); POTASSIUM 4.3 mmol/L (3.5-5.1); TOTAL PROTEIN, SERUM 6.7 g/dL (6.0-8.3)
[2020-03-03] MEDS: INSULIN HUMULIN R 100 UNIT/ML 3ML SQ SCH ×7 (07:08→23:04)
[2020-03-03 08:33] VITALS: BP 123/76
[2020-03-03] MEDS: NYSTATIN 100000 UNIT/ML 5ML UDCUP PO SCH ×4 (09:02→23:02)
[2020-03-03] MEDS: ASCORBIC ACID 500 MG TAB PO SCH (09:02)
[2020-03-03] MEDS: ZINC SULFATE 220 CAPSULE PO SCH (09:02)
[2020-03-03] MEDS: FAMOTIDINE 20MG TAB 20 MG TAB PO SCH ×2 (09:02→23:02)
[2020-03-03] MEDS: ENOXAPARIN SODIUM 60 MG/0.6 ML SQ SCH (09:05)
[2020-03-03] MEDS: METOPROLOL TARTRATE 25 MG TAB PO SCH ×2 (09:08→23:01)
[2020-03-03 12:06] VITALS: BP 101/67
[2020-03-03 16:00] VITALS: BP 110/71
[2020-03-03 19:00] VITALS: BP 107/74
[2020-03-04] VITALS (7 sets, daily range): BP systolic 91–120; BP diastolic 56–83
[2020-03-04] MEDS: DIPHENHYDRAMINE HCL 25 MG CAPSULE PO PRN (00:45)
[2020-03-04] MEDS: INSULIN HUMULIN R 100 UNIT/ML 3ML SQ SCH ×7 (06:55→20:57)
[2020-03-04] MEDS: FAMOTIDINE 20MG TAB 20 MG TAB PO SCH ×2 (08:27→20:56)
[2020-03-04] MEDS: NYSTATIN 100000 UNIT/ML 5ML UDCUP PO SCH ×4 (08:27→20:56)
[2020-03-04] MEDS: METOPROLOL TARTRATE 25 MG TAB PO SCH ×2 (08:28→20:56)
[2020-03-04] MEDS: ENOXAPARIN SODIUM 60 MG/0.6 ML SQ SCH (08:28)
[2020-03-04] MEDS: ASCORBIC ACID 500 MG TAB PO SCH (08:28)
[2020-03-04] MEDS: ZINC SULFATE 220 CAPSULE PO SCH (08:28)
[2020-03-04] MEDS: INSULIN GLARGINE 100 UNITS/ML 10 ML VIAL SQ SCH (12:18)
[2020-03-04] MEDS: DiphenhydrAMINE HCL 50 MG/ML VIAL IV PRN (22:46)
[2020-03-05] VITALS: BP 107/69
[2020-03-05 03:00] VITALS: BP 117/78
[2020-03-05] MEDS ORDERED: INSULIN HUMULIN R 100 UNIT/ML 3ML SQ SCH (07:30)
[2020-03-05] MEDS: INSULIN HUMULIN R 100 UNIT/ML 3ML SQ SCH ×2 (07:30→11:30)
[2020-03-05 08:00] VITALS: BP 109/66
[2020-03-05] MEDS ORDERED: ASPI-1005 PO (08:08)
[2020-03-05] MEDS ORDERED: ATOR20TA65 PO (08:08)
[2020-03-05] MEDS ORDERED: ZINC220C6 PO (08:08)
[2020-03-05] MEDS ORDERED: APIX2.5T PO (08:08)
[2020-03-05] MEDS ORDERED: ASCO500T20 PO (08:08)
[2020-03-05] MEDS ORDERED: METO25 PO (08:08)
[2020-03-05] MEDS ORDERED: METF-444 PO (08:08)
--- NOTE | 2020-03-05 08:15 | NUR ---
SITTING UP ON SIDE OF BED EATING BREAKFAST. O2 AT 4L/NC, CONTINUOUS PULSE OXIMETER AT BEDSIDE. CALL LIGHT WITHIN REACH.
[2020-03-05] MEDS ORDERED: APIXABAN 2.5 MG TABLET PO SCH (09:00)
[2020-03-05] MEDS ORDERED: METOPROLOL TARTRATE 25 MG TAB PO SCH (09:00)
[2020-03-05] MEDS ORDERED: ASPIRIN 81MG TAB.CHEW PO SCH (09:00)
[2020-03-05] MEDS: ZINC SULFATE 220 CAPSULE PO SCH (09:18)
[2020-03-05] MEDS: ASCORBIC ACID 500 MG TAB PO SCH (09:18)
[2020-03-05] MEDS: METFORMIN HCL 500 MG TABLET PO SCH ×3 (09:18→16:14)
[2020-03-05] MEDS: NYSTATIN 100000 UNIT/ML 5ML UDCUP PO SCH ×3 (09:18→16:14)
[2020-03-05] MEDS: FAMOTIDINE 20MG TAB 20 MG TAB PO SCH (09:18)
[2020-03-05] MEDS: INSULIN GLARGINE 100 UNITS/ML 10 ML VIAL SQ SCH (09:19)
--- NOTE | 2020-03-05 10:20 | NUR ---
SITTING UP IN BED SPEAKING WITH FAMILY MEMBERS ON CELLULAR PHONE. O2 AT 4L/NC. O2 SAT.-99%, P-91, PER CONTINUOUS PULSE OXIMETER AT BEDSIDE. CALL LIGHT WITHIN REACH.
[2020-03-05 12:00] VITALS: BP 106/68
--- NOTE | 2020-03-05 12:17 | NUR ---
DR. Hayden SHRESTHA IN ROOM SPEAKING WITH PT. RE:PLAN OF CARE AND ANSWERING QUESTIONS; PT. VERBALIZED UNDERSTANDING.
--- NOTE | 2020-03-05 14:35 | NUR ---
RECEIVED CALL FROM PT.'S DAUGHTER, LUCINDA SUN, UPDATED ON STATUS AND QUESTIONS ANSWERED; VERBALIZED UNDERSTANDING.
--- NOTE | 2020-03-05 15:12 | NUR ---
RECEIVED CALL FROM ETHAN BESS, NURSE AT [facility]; REPORT PROVIDED AND Berry BESS REQUESTING IV LEFT IN PLACE UPON DISCHARGE.
--- NOTE | 2020-03-05 16:01 | NUR ---
DC PLAN SPOKE TO PATIENT AND FAMILY REGARDING DC PLAN. PATIENT NO LONGER INSURED. 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 NOT SURE IF HE WOULD BE ABLE TO AFFORD MEDICATIONS AND STILL NEEDING 02 AND TH[address]. ASKED DR. SHRESTHA IF OKAY TO OFFER [facility] GAVE OKAY. OFFERED [facility] AGAIN. EXPLAINED HOW IT COULD HELP. GAVE VERBAL OKAY. NURSE OSITO MUNOZ. INFO EMAILED TO DR. UMANZOR. PATIENT ACCEPTED. LET OSITO KNOW OF ACCEPTANCE. EMS FACE SHEET SENT [facility] WILL CALL FOR BREAKER LAYER. LET DR. SHRESTHA KNOW OF ACCEPTANCE. MOT IN CHART PENDING HOUSE SIGNATURE LET HER KNOW. Addendum: 03/05/20 at 1606 by PERNELL BARRON RN CM Amended: Links added.
--- NOTE | 2020-03-05 16:03 | NUR ---
DISCHARGED VIA STRETCHER BY EMS. BELONGINGS SENT WITH PT. Addendum: 03/05/20 at 1611 by OSITO ROSALES RN RN PT. ON VIDEO CALL WITH DAUGHTER UPON DISCHARGE. Addendum: 03/05/20 at 1614 by OSITO ROSALES RN RN DISCHARGED WITH O2 AT 4L/NC.
[2020-03-05] MEDS ORDERED: ATORVASTATIN CALCIUM 20 MG TABLET PO SCH (21:00)
[2020-03-09] MEDS ORDERED: INSULIN GLARGINE 100 UNITS/ML 10 ML VIAL SQ SCH (08:00)
== END 2020-03-05 16:20 | disposition short-term general hospital (02) | DRG 177 ==
LOC: EDH 19:03 → EDBD 19:03 → EDHIP 20:57 → 4DH 22:05 → 4BH 02-12 10:16 → 4DH 02-12 11:27 → 2DH 02-13 11:08
PROVIDERS: ADMIT Internal Medicine; ATTEND Internal Medicine
PROC: XW13325 Transfusion of Convalescent Plasma (Nonautologous) into Peripheral Vein, Percutaneous Approach, New Technology Group 5 (ICD-10-PCS; principal; 2020-02-20)
PROC: XW033E5 Introduction of Remdesivir Anti-infective into Peripheral Vein, Percutaneous Approach, New Technology Group 5 (ICD-10-PCS; 2020-02-21)
DX: U07.1 COVID-19 (principal); J12.89 Other viral pneumonia; J96.01 Acute respiratory failure with hypoxia; E87.1 Hypo-osmolality and hyponatremia; K57.30 Diverticulosis of large intestine without perforation or abscess without bleeding; K44.9 Diaphragmatic hernia without obstruction or gangrene; E11.65 Type 2 diabetes mellitus with hyperglycemia; E66.9 Obesity, unspecified; K76.0 Fatty (change of) liver, not elsewhere classified; T38.0X5A Adverse effect of glucocorticoids and synthetic analogues, initial encounter; Y92.89 Other specified places as the place of occurrence of the external cause; Z68.33 Body mass index [BMI] 33.0-33.9, adult
CPT/HCPCS: 36415; 36430; 36600; 71045; 71275; 80048; 80053; 80076; 81001; 82550; 82728; 82803; 82948; 83036; 83605; 83615; 83735; 83880; 84100; 84145; 84484; 85025; 85378; 85384; 85610; 85730; 86140; 86850; 86900; 86901; 86927; 87040; 87426; 87804; 90732; 93005; 94760; 97039; G0378; J0456; J0696; J1100; J1200; J1644; J1650; J1815; J2920; J2930; J3490; J7050; Q0163; Q9967